=== PATIENT | female | born 1980 ===

== ENCOUNTER 2018-03-03 16:54 | Emergency (ER) | payer OTHER ==
--- NOTE | 2018-03-03 17:19 | C.PDOC ---
History Of Present Illness 37 years old female, currently on her Menstrual Period, presents to ED for complaints of lower abdominal pain that began last night. Patient states with every Menstrual period she normally experiences abdominal cramping, but pain has been more prolonged than usual for the past 1 week. Patient reports usually some relief with Motrin, but took one today with no relief. 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 Patient has no past surgical history. Patient also complaints of constipation associated with her period. She reports abdominal pain worsens whenever she pushes however she was able to move bowels this morning. Denies taking any stool softener medications. Patient also states she is taking miralax prn. <Cara Gross - Last Filed: 03/03/18 18:32> History Per: Patient History/Exam Limitations: no limitations Onset/Duration Of Symptoms: Hrs, Persistent Current Symptoms Are (Timing): Still Present Location Of Pain/Discomfort: RLQ, LLQ Radiation Of Pain To:: None Quality Of Discomfort: Cramping Associated Symptoms: Constipation. denies: Fever, Chills, Nausea, Vomiting, Diarrhea Exacerbating Factors: None Alleviating Factors: None Last Bowel Movement: Today Recent travel outside of the [place]: No Abnormal Vaginal Bleeding: No <Cara Gross - Last Filed: 03/03/18 18:32> <Ace Gann - Last Filed: 03/03/18 23:39> Time Seen by Provider: 03/03/18 17:15 Chief Complaint (Nursing): Abdominal Pain Past Medical History Reviewed: Historical Data, Nursing Documentation, Vital Signs Vital Signs: Last Vital Signs Temp 98.3 F 03/03/18 16:57 Pulse 108 H 03/03/18 16:57 Resp 18 03/03/18 16:57 BP 130/93 H 03/03/18 16:57 Pulse Ox 98 03/03/18 16:57 - Medical History PMH: Arthritis Surgical History: Tonsillectomy Family History: States: No Known Family Hx - Social History Hx Alcohol Use: No Hx Substance Use: No - Immunization History Hx Tetanus Toxoid Vaccination: No Hx Influenza Vaccination: Yes Hx Pneumococcal Vaccination: No <Cara Gross - Last Filed: 03/03/18 18:32> Vital Signs: Last Vital Signs Temp 98.4 F 03/03/18 21:06 Pulse 90 03/03/18 21:06 Resp 16 03/03/18 21:06 BP 116/81 03/03/18 21:06 Pulse Ox 99 03/03/18 21:06 <MahamedGloria [email or web address] - Last Filed: 03/03/18 23:39> Review Of Systems Constitutional: Negative for: Fever, Chills Gastrointestinal: Positive for: Abdominal Pain, Constipation. Negative for: Nausea, Vomiting, Diarrhea Skin: Negative for: Rash Neurological: Negative for: Weakness, Numbness <Cara Gross - Last Filed: 03/03/18 18:32> Physical Exam - Physical Exam Appears: Non-toxic, In Acute Distress (Moderate ), Other (Crying ) Skin: Normal Color, Warm, Dry, No Rash Head: Atraumatic, Normacephalic Eye(s): bilateral: Normal Inspection, PERRL, EOMI Oral Mucosa: Moist Neck: Supple Chest: Symmetrical, No Tenderness Cardiovascular: Rhythm Regular Respiratory: Normal Breath Sounds, No Rales, No Rhonchi, No Wheezing Gastrointestinal/Abdominal: Bowel Sounds (Active ), Soft, Tenderness (RLQ), No Distention, No Guarding, No Rebound Extremity: Normal ROM Extremity: Bilateral: Atraumatic, Normal Color And Temperature, Normal ROM Pulses: Left Radial: Normal, Right Radial: Normal Neurological/Psych: Oriented x3, Normal Speech Gait: Steady <Cara Gross - Last Filed: 03/03/18 18:32> ED Course And Treatment - Laboratory Results Result Diagrams: 03/03/18 18:03 03/03/18 18:03 O2 Sat by Pulse Oximetry: 98 (RA) Pulse Ox Interpretation: Normal <Cara Gross - Last Filed: 03/03/18 18:32> - Laboratory Results Result Diagrams: 03/03/18 18:03 03/03/18 18:03 Pulse Ox Interpretation: Normal - CT Scan/US Pelvic US Other Rad Studies (CT/US): Read By Radiologist, Radiology Report Reviewed CT/US Interpretation: History. Right pelvic pain. Comparison. None available. Technique. TA/TV. Findings. Uterus. Measures 9.6 x 3.7 x 4.9 cm. Normal in size and appearance. Uterine fundal subserosal tiny fibroid measures 1.1 x 0.8 x 1.3 cm. Endometrium. Measures 22 mm in diameter. Endometrial rounded lesion with vascularity may represent a polyp. Cervix. No cervical abnormality identified. Right ovary. Measures 3.5 x 2.2 x 3.8 cm. No solid mass. Normal flow. Tiny calcification measures 3 mm. Left ovary. Measures 3.4 x 2.6 x 3.1 cm. No solid mass. Normal flow. Free fluid. No significant free fluid noted. Other Findings. None. Impression. 1. Thickened endometrium with probable polyp. Endometrial biopsy is recommended. 2. Tiny fundal subserosal fibroid. 3. Right ovarian calcification. . Electronically signed on Mar 03, 2018 11 :26:01 PM EST by: Landry Infante M.D., SRIRAM Certified By ABR & [facility]. Fellowship Trained MRI and CT Specialist CT abd/pelvis Other Rad Studies (CT/US): Read By Radiologist, Radiology Report Reviewed CT/US Interpretation: EXAM: CT Abdomen with IV contrast. CLINICAL HISTORY: RLQ and LLQ pain and constipation. TECHNIQUE: Axial computed tomography images of the abdomen and pelvis with intravenous contrast. DLP not provided. CONTRAST: With; READICAT & VISI 100 MLS. COMPARISON: None provided. FINDINGS: LUNG BASES: The lung bases appear clear. No pleural effusions are seen. LIVER: Unremarkable. GALLBLADDER AND BILE DUCTS: The gallbladder appears within normal limits. No radioopaque gallstones are seen. No biliary ductal dilatation is evident. PANCREAS: Unremarkable. SPLEEN: Unremarkable. ADRENAL GLANDS: Unremarkable. KIDNEYS, URETERS, AND BLADDER: Nonobstructing 2 mm calculus in the midpole of the right kidney. There is no hydronephrosis. STOMACH AND BOWEL: Short segment of diffuse mural thickening of the sigmoid colon, centered on axial image 63/107, series 2/7, with appearance suggestive of stricture. Recommend continued follow-up. No evidence of bowel obstruction. No evidence suggesting enteritis or colitis. APPENDIX: No evidence of acute appendicitis on CT examination. PERITONEUM: No free fluid. No free air. LYMPH NODES: No lymphadenopathy is evident. VASCULATURE: No evidence of abdominal aortic aneurysm. BONES: No aggressive appearing osseous lesion. No acute osseous pathology evident. IMPRESSION: Findings suggestive of nonobstructing stricture of the sigmoid colon. Recommend further evaluation. . Electronically signed on Mar 03, 2018 8:44:14 PM EST by: Romel Murguia, Certified by ABR, Diagnostic Radiology Reevaluation Time: 23:36 Reassessment Condition: Improved <Ace Gann - Last Filed: 03/03/18 23:39> Medical Decision Making Medical Decision Making: Plan: * IV Fluids * Toradol * Zofran * Iohexol * CT Abdomen/Pelvis * Blood work * Urinalysis * Transvaginal US <Cara Gross - Last Filed: 03/03/18 18:32> Disposition Counseled Patient/Family Regarding: Studies Performed, Diagnosis - Disposition Disposition Time: 19:00 <Cara Gross - Last Filed: 03/03/18 18:32> Counseled Patient/Family Regarding: Studies Performed, Diagnosis, Need For Followup <Ace Gann - Last Filed: 03/03/18 23:39> - Disposition Referrals: [facility] [Outside] [facility] [Outside] Disposition: HOME/ ROUTINE Condition: STABLE Additional Instructions: Please return if symptoms recur. Do follow up with your ob/gn for the thickened endometrium and a edger hand for your possible stricuture of the sigmoid colon Prescriptions: Naproxen [Naprosyn] 1 tab PO BID PRN #25 tab PRN Reason: Pain Instructions: Acute Abdomen (Belly Pain), Adult (DC) Forms: [employer] (Japanese) - Clinical Impression Clinical Impression: Abdominal pain - Scribe Statement The provider has reviewed the documentation as recorded by the Scribe Percy Sauceda All medical record entries made by the Scribe were at my direction and personally dictated by me. I have reviewed the chart and agree that the record accurately reflects my personal performance of the history, physical exam, medical decision making, and the department course for this patient. I have also personally directed, reviewed, and agree with the discharge instructions and disposition. <Cara Gross - Last Filed: 03/03/18 18:32> Physician Patient Turnover Patient Signed Over To: Ace Gann Handoff Comments: FU US, CT, DISPO <Cara Gross - Last Filed: 03/03/18 18:32>
[2018-03-03] MEDS ORDERED: Sodium Chloride 0.9% 1,000 ML IV ONE (17:33)
[2018-03-03] MEDS ORDERED: Iohexol 240 (50 ml) PO STA (17:33)
[2018-03-03] MEDS ORDERED: Iohexol 240 (50 ml) ONE (17:52)
[2018-03-03 18:05] LABS: SQUAMOUS EPITHIAL < 1 /hpf (0-5); URINE BACTERIA RARE (<OCC); URINE BILIRUBIN NEGATIVE (NEGATIVE); URINE BLOOD 3+ (NEGATIVE); URINE COLOR LIGHT RED (YELLOW); URINE GLUCOSE (UA) NORMAL (Normal); URINE LEUKOCYTE ESTERASE NEG Leu/uL (Negative); URINE PROTEIN 1+ mg/dL (NEGATIVE); URINE UROBILINOGEN NORMAL mg/dL (0.2-1.0)
[2018-03-03 18:06] LABS: URINE CLARITY Hazy (Clear)
[2018-03-03 18:20] LABS: ALB/GLOB RATIO 1.2 (1.0-2.1); ALBUMIN 4.4 g/dL (3.5-5.0); ALT/SGPT 16 U/L (9-52); AST/SGOT 18 U/L (14-36); BLOOD UREA NITROGEN 9 mg/dL (7-17); CALCIUM 9.3 mg/dl (8.6-10.4); GFR NON-AFRICAN AMERICAN > 60; LIPASE 87 U/L (23-300)
[2018-03-03 18:27] LABS: BASO % 0.3 % (0.0-2.0); EOS % 0.2 % (0.0-4.0); HEMOGLOBIN 10.8 g/dL (11.0-16.0); LYMPH % 17.9 % (20.0-40.0); MEAN CELL VOLUME 71.5 fL (81.0-99.0); MEAN CORPUSCULAR HEMOGLOBIN 22.4 pg (27.0-31.0); MEAN CORPUSCULAR HGB CONC 31.3 g/dL (33.0-37.0); MEAN PLATELET VOLUME 8.2 fL (7.2-11.7); MONO % 8.8 % (0.0-10.0); NEUT # 8.1 K/uL (1.8-7.0); NEUT % 72.8 % (50.0-75.0); RBC 4.83 Mil/uL (3.80-5.20); RED CELL DISTRIBUTION WIDTH 16.3 % (11.5-14.5); WHITE BLOOD COUNT 11.1 K/uL (4.8-10.8)
[2018-03-03] MEDS ORDERED: Iodixanol 320 MG/ML 100 ML BOTTLE IV ONE (18:39)
[2018-03-03 21:06] VITALS: RESP 16
[2018-03-03 23:51] VITALS: BP 108/71; PULSE 82; TEMP 98; O2SAT 100
--- NOTE | 2018-03-04 10:07 | CT ---
Date of service: 03/03/2018 PROCEDURE: CT Abdomen and Pelvis.. HISTORY: RLQ abd pain COMPARISON: None. TECHNIQUE: Contiguous axial images of the abdomen and pelvis performed following oral and intravenous injection of Visipaque 320 contrast material.. Coronal and Sagittal reformats generated. Radiation dose: Total exam DLP = 424.44 mGy-cm. This CT exam was performed using one or more of the following dose reduction techniques: Automated exposure control, adjustment of the mA and/or kV according to patient size, and/or use of iterative reconstruction technique. FINDINGS: LOWER THORAX: Unr the lung bases are free of focal consolidation of there appears to be some minimal irregular pleural thickening along the left posterior lower lung base. The no effusion or basilar pneumothorax. Heart size is within range of normal. No significant pericardial effusion. Tiny hiatal hernia. LIVER: Liver exhibits normal size. Mild fatty hepatic infiltration. No obvious hepatic mass collection calcification. Portal and splenic veins are opacified.. GALLBLADDER AND BILE DUCTS: Gallbladder physiologically distended. No evidence of intraluminal gallbladder calculi.. PANCREAS: Pancreas appears unremarkable without masses collections or calcifications.. SPLEEN: Spleen exhibits normal size and attenuation pattern without mass collection or calcification.. ADRENALS: No adrenal lesions KIDNEYS AND URETERS: Kidneys demonstrate symmetric nephrograms.. There are a few tiny nonobstructing calcifications seen in the upper/mid pole collecting system right kidney. No evidence hydronephrosis. BLADDER: The urinary bladder incompletely distended which likely accounts for slight thick-walled appearance. Correlation with urinalysis. REPRODUCTIVE: Endometrium is somewhat heterogeneous in appearance. Follow-up of pelvic ultrasound recommended to exclude endometrial pathology such as endometrial hyperplasia, endometrial polyps or possibility of endometrial carcinoma. APPENDIX: Appendix not seen with certainty on this study however no obvious inflammatory changes right lower quadrant of the abdomen.. BOWEL: Evaluation of bowel is somewhat limited to incomplete opacification. The stomach is distended with oral contrast material small amount of air. Visualized loops of small bowel exhibit relatively normal contour caliber. No evidence mechanical small bowel obstruction with oral contrast material extending into colon to the level of the rectum. There is mild wall thickening short segment of the distal sigmoid near the rectum which probably represent some combination of incomplete distension peristalsis and unopacified stool however possibility of a intrinsic wall lesion not excluded. Follow-up colonoscopy is suggested. An occasional colonic diverticula also seen. PERITONEUM: Unremarkable. No fluid collection. No free air. LYMPH NODES: Unremarkable. No enlarged lymph nodes. VASCULATURE: Unremarkable. No aortic aneurysm. No aortic atherosclerotic calcification or mural plaque present. BONES: Mild multilevel degenerative spondylosis of the lower thoracic and lumbar spine. OTHER FINDINGS: None. IMPRESSION: There is thickened endometrium. Follow-up of pelvic ultrasound recommended to exclude endometrial pathology differential diagnosis which has been listed above. . There is thickening of a short segment of the distal sigmoid colon that may be due to incomplete distention peristalsis and unopacified stool however possibility of an intrinsic/invasive wall lesion must be considered and therefore follow-up colonoscopy recommended. Occasional colonic diverticula present. Mild fatty hepatic infiltration.. Few tiny nonobstructing calcifications right kidney as described.. Note this report was placed in PA review folder follow up.
--- NOTE | 2018-03-04 11:00 | US ---
Date of service: 03/03/2018 HISTORY: R PELVIC PAIN COMPARISON: CT abdomen and pelvis with IV contrast performed 03/03/18 TECHNIQUE: Real-time transabdominal pelvic ultrasound was performed. In addition a transvaginal pelvic ultrasound was necessary to better depict pelvic anatomy. FINDINGS: UTERUS: Measures 9.6 x 3.7 x 4.9 cm. Anteverted. 1.1 x 0.8 x 1.3 cm heterogeneous uterine mass consistent with fundal fibroid. ENDOMETRIUM: Measures 2.2 cm in diameter. CERVIX: No cervical abnormality identified. RIGHT OVARY: Measures 3.5 x 2.2 x 3.8 cm. Blood flow is demonstrated. 3 mm echogenic focus, likely calculus. LEFT OVARY: Measures 3.4 x 2.6 x 3.1 cm. Blood flow is demonstrated. FREE FLUID: No significant free fluid noted. OTHER FINDINGS: None. IMPRESSION: Thickened endometrium measuring approximately 2.2 cm. Rounded lesion within the endometrium demonstrates vascularity of indeterminate etiology, possibly polyp. Recommend further evaluation with hysteroscopy/endometrial biopsy. 1.1 x 0.8 x 1.3 cm uterine mass, likely fundal fibroid. 3 mm echogenic focus at the right ovary, likely calcification. Preliminary impression was provided by [employer].
== END 2018-03-04 00:05 | disposition home or self-care (01) ==
LOC: C.ER 16:54
DX: R10.9 Unspecified abdominal pain (principal)
CPT/HCPCS: 74177; 76830; 76856; 80053; 81001; 83690; 85025; 96361; 96374; 96375; 99285; J1885; J2405; J7030; Q9966; Q9967